=== PATIENT | female | born 1965 | race Caucasian/White ===

== ENCOUNTER 2019-05-26 09:35 | Emergency (ER) | payer OTHER ==
[~2019-05-26] VITALS: Ht 175.3 cm; Wt 100.0 kg
[2019-05-26 09:39] VITALS: BP 136/87; Ht 175.3 cm; Wt 100.0 kg
[2019-05-26] MEDS ORDERED: OMEPRAZOLE20 M1 PO (09:41)
[2019-05-26] MEDS ORDERED: ULTRAM50 MG PO (11:18)
== END 2019-05-26 11:35 | disposition home or self-care (01) ==
LOC: D.ER 09:35
DX: M54.5 Low back pain (principal); M25.512 Pain in left shoulder; V43.52XA Car driver injured in collision with other type car in traffic accident, initial encounter; Y93.89 Activity, other specified; Y92.410 Unspecified street and highway as the place of occurrence of the external cause